=== PATIENT | female | born 1985 | race Hispanic/Latino ===

== ENCOUNTER 2018-11-28 09:08 | Day surgery (SDC) | payer MEDICAID ==
[2018-11-28] MEDS ORDERED: NACL 0.9% 1000 ML 1,000 ML IV SCH (11:00)
--- NOTE | 2018-11-28 11:11 | Anesthesia Consultation ---
Anesthesia Consult and Med Hx Date of service: 11/28/18 - Airway Anesthetic Teeth Evaluation: Good, Caps ROM Head & Neck: Adequate Mental/Hyoid Distance: Adequate Mallampati Class: Class II Intubation Access Assessment: Good - Pulmonary Exam CTA: Yes - Cardiac Exam Cardiac Exam: RRR - Pre-Operative Health Status ASA Pre-Surgery Classification: ASA1 Proposed Anesthetic Plan: MAC (Front upper incisor is capped)
--- NOTE | 2018-11-28 11:11 | Anesthesia Day of Surgery ---
Anesthesia Day of Surgery - Day of Surgery Patient Examined: Yes Patient H&P Reviewed: Yes Patient is NPO: Yes
[2018-11-28] MEDS ORDERED: VERSED ONE (11:24)
[2018-11-28] MEDS ORDERED: DIPRIVAN 10 MG/ML IV ONE ×2 (11:24)
[2018-11-28] MEDS ORDERED: SUBLIMAZE ONE (11:28)
--- NOTE | 2018-11-28 11:38 | Operative Report ---
Operative Report Operative Report: DOS: 11/28/18 SURGEON: Tadeo Roque MD EGD with biopsy REPORT PREOPERATIVE DIAGNOSIS and POSTOPERATIVE DIAGNOSIS: History of gastric ulcer ESTIMATED BLOOD LOSS: minimal DESCRIPTION OF PROCEDURE: A high-resolution EGD scope was passed through the oropharynx, esophagus, stomach, and second portion of duodenum. The scope was carefully withdrawn. Retroflexion was performed in the stomach. At the end of the procedure, the scope was cleaned using normal technique. Vital signs monitored continuously throughout. SEDATION: Provided by Anesthesiology Services. COMPLICATIONS: None. FINDINGS: * Normal Duodenum * 2mm erosion in pre-pyloric stomach, Biopsies were taken to rule out H. Pylori infection. A total of 5 biopsies were taken, 2 from the antrum, 1 from the incisura, 2 from the body. * Gastric lumen consistent with prior bariatric surgery (gastric sleeve) * Z line irregular at 37cm from the incisors * Remainder of the exam was normal RECOMMENDATIONS: * Decrease dose of the PPI to 20mg daily and continue to work on EtOh cessation, avoid NSAIDs, and work on decreasing marijuana use (using 1/2 a joint an evening) * RTC 6 -12 months, will see if can completely wean off PPI at that point
[2018-11-28 12:05] VITALS: BP 114/66
== END 2018-11-28 09:09 | disposition home or self-care (01) ==
LOC: GIO 09:08
PROVIDERS: ATTEND Student in an Organized Health Care Education/Training Program
DX: K29.50 Unspecified chronic gastritis without bleeding (principal); F32.9 Major depressive disorder, single episode, unspecified; F41.9 Anxiety disorder, unspecified; K52.9 Noninfective gastroenteritis and colitis, unspecified; Z79.899 Other long term (current) drug therapy; Z90.49 Acquired absence of other specified parts of digestive tract; Z98.890 Other specified postprocedural states
CPT/HCPCS: 43239; 81025; 88305; 88342; J2250; J2704; J3010; J7030

== ENCOUNTER 2021-03-24 13:03 | Emergency (ER) | payer OTHER, MEDICARE ==
[2021-03-24 13:18] VITALS: BP 131/94
[2021-03-24] MEDS ORDERED: BUTALB/ACETAMINOPHEN/CAFFEINE TAB PO STA (14:29)
[2021-03-24] MEDS ORDERED: ACETAMINOPHEN 325 MG/10.15 ML ORAL LIQD UNIT DOSE PO ONE (14:30)
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
[2021-03-24 15:35] LABS: HCG Qualitative,Urine Negative (Negative)
--- NOTE | 2021-03-24 16:18 | Cat Scan Report ---
CT BRAIN: 03/24/2021 INDICATION / CLINICAL INFORMATION: frontal headache, vomiting afterhead injury. COMPARISON: None available. FINDINGS: BRAIN/INTRACRANIAL STRUCTURES: Unenhanced CT images of the brain demonstrate no evidence of acute int racranial abnormality. Ventricles and sulci are normal in size and shape. There is no evidence of hemorrhage or mass. There are no abnormal extra-axial fluid collections. EXTRACRANIAL STRUCTURES: Unremarkable. IMPRESSION: Negative unenhanced CT of the brain. All CT scans at this location are performed using dose reduction to ALARA by means of automated expos ure control. Signer Name: Speedy Varela MD Signed: 03/24/2021 4:14 PM Workstation Name: [id number]
--- NOTE | 2021-03-24 16:20 | Cat Scan Report ---
CT CERVICAL SPINE: 03/24/2021 INDICATION / CLINICAL INFORMATION: pain after head injury. COMPARISON: None available. FINDINGS: CT images of the cervical spine were obtained. Images are evaluated in the axial, coronal, and sagitt al planes. There is no evidence of acute abnormality. Slight reversal of cervical lordosis is centered at the C 5 level with the patient positioned for this exam. There is no evidence of canal or foraminal narrowing. CRANIOCERVICAL JUNCTION: Unremarkable. PARASPINAL STRUCTURES: Unremarkable IMPRESSION: No acute abnormality All CT scans at this location are performed using dose reduction to ALARA by means of automated expos ure control. Signer Name: Speedy Varela MD Signed: 03/24/2021 4:16 PM Workstation Name: [id number]
== END 2021-03-24 17:05 | disposition home or self-care (01) ==
LOC: ED 13:03
DX: S09.90XA Unspecified injury of head, initial encounter (principal); M54.2 Cervicalgia; X58.XXXA Exposure to other specified factors, initial encounter; Y93.89 Activity, other specified; Y92.89 Other specified places as the place of occurrence of the external cause; Y99.8 Other external cause status
CPT/HCPCS: 70450; 72125; 81025; 99284

== ENCOUNTER 2021-09-21 19:28 | Emergency (ER) | payer MEDICARE, OTHER | END 2021-09-22 07:46 | disposition left against medical advice (07) | LOC: ED 19:28 | DX: R07.2 Precordial pain (principal); M79.606 Pain in leg, unspecified; M79.646 Pain in unspecified finger(s); Z53.21 Procedure and treatment not carried out due to patient leaving prior to being seen by health care provider ==